=== PATIENT | male | born 1985 ===

== ENCOUNTER 2021-09-08 15:41 | Outpatient (REF) | payer MEDICAID, SELFPAY ==
[2021-09-08 17:25] LABS: Calculated LDL 118 mg/dL (<100); Cholesterol 184 mg/dL (<200); Glucose 90 mg/dL (74-106); HDL Cholesterol 50 mg/dL (40-60); Triglyceride 82 mg/dL (<150)
== END 2021-09-08 15:42 | disposition home or self-care (01) ==
LOC: NCHCN 15:41
PROVIDERS: Visit Provider Nurse Practitioner Family
DX: Z13.220 Encounter for screening for lipoid disorders (principal); Z13.1 Encounter for screening for diabetes mellitus
CPT/HCPCS: 80061; 82947